=== PATIENT | female | born 1990 | race Caucasian/White ===

== ENCOUNTER 2018-07-29 22:56 | Emergency (ER) | payer OTHER ==
[~2018-07-29] VITALS: Ht 154.9 cm; Wt 59.0 kg
== END 2018-07-30 | disposition home or self-care (01) ==
LOC: ER 22:56
DX: R00.2 Palpitations (principal)

== ENCOUNTER 2020-05-18 00:14 | Emergency (ER) | payer OTHER ==
[~2020-05-18] VITALS: Ht 154.9 cm; Wt 62.6 kg
[2020-05-18] MEDS ORDERED: KETO10TA2 PO ×2 (02:50→02:51)
[2020-05-18] MEDS ORDERED: KEFLEX500 MG PO (02:51)
== END 2020-05-18 03:01 | disposition home or self-care (01) ==
LOC: ER 00:14
DX: H60.8X1 Other otitis externa, right ear (principal)

== ENCOUNTER 2020-11-25 20:35 | Emergency (ER) | payer OTHER ==
[~2020-11-25] VITALS: Ht 154.9 cm; Wt 63.5 kg
[~2020-11-25 20:35] MED LIST: KEFLEX500 MG PO; KETO10TA2 PO
== END 2020-11-25 23:46 | disposition home or self-care (01) ==
LOC: ER 20:35
DX: O20.0 Threatened abortion (principal); Z3A.00 Weeks of gestation of pregnancy not specified

== ENCOUNTER 2021-01-28 21:25 | Emergency (ER) | payer OTHER ==
[~2021-01-28] VITALS: Ht 154.9 cm; Wt 63.5 kg
== END 2021-01-29 01:22 | disposition home or self-care (01) ==
LOC: ER 21:25
DX: F43.0 Acute stress reaction (principal); Z33.1 Pregnant state, incidental